=== PATIENT | female | born 1975 | race Asian ===

== ENCOUNTER 2016-04-26 16:19 | Inpatient (IN) | payer BC ==
[~2016-04-26] VITALS: Ht 167 cm; Wt 68.5 kg
[~2016-04-26 16:19] MED LIST: MOTRIN800 MG PO; PERCOCET 5/31 TABLET PO
[2016-04-26 16:41] VITALS: BP 130/90
[2016-04-26 17:10] VITALS: BP 133/85
[2016-04-26] MEDS ORDERED: DIABETA2.5 MG PO (17:28)
[2016-04-26] MEDS ORDERED: PRENATAL TABLE1 EAC3 PO (17:29)
[2016-04-26 18:19] LABS: EOSINOPHIL (%) 0.9 % (0-5); EOSINOPHIL COUNT 0.1 K/uL (0-0.3); HEMATOCRIT 43.4 % (36.0-46.0); IMMATURE GRANULOCYTE (%) 0.4 % (0.0-0.7); LYMPHOCYTE COUNT 2.3 K/uL (1.0-2.8); MCH 30.8 PG (29.0-34.0); MCHC 32.3 G/DL (30.0-36.0); MCV 95.4 FL (83-99); MEAN PLAT.VOLUME 10.4 uM^3 (9.5-12.4); MONOCYTE (%) 7.8 % (3-12); MONOCYTE COUNT 0.8 K/uL (0-0.8); NEUTROPHIL (%) 67.4 % (45-76); NEUTROPHIL COUNT 6.7 K/uL (1.8-6.4); PLATELET COUNT 219 K/uL (156-360); RBC DIS.WIDTH-CV 14.6 % (11.8-14.6); RBC DIS.WIDTH-SD 50.7 % (39-53); RED BLOOD COUNT 4.55 M/uL (3.80-5.20); WHITE BLOOD COUNT 9.9 K/uL (4.1-10.2)
[2016-04-26 18:24] LABS: ANION GAP 11 MEQ/L (2-14); CHLORIDE 104 MEQ/L (99-109); POTASSIUM 3.6 MEQ/L (3.7-5.4); SAMPLE HEMOLYSIS CHECK 0; SAMPLE ICTERIC CHECK 0; SAMPLE LIPEMIA CHECK 0; SODIUM 136 MEQ/L (136-147); TOTAL BILIRUBIN 0.3 MG/DL (0.0-1.0)
[2016-04-26 18:30] LABS: ALKALINE PHOSPHATASE 136 IU/L (3-129); GFR ESTIMATE (CALCULATED) > 59 mL/min/; GLUCOSE 67 mg/dL (70-99); UREA NITROGEN (BUN) 14 mg/dL (9-23)
[2016-04-26 19:48] LABS: POINT-OF-CARE METER ID UU13113801
[2016-04-26 22:00] VITALS: BP 135/73
[2016-04-26 23:32] VITALS: BP 132/75
[2016-04-27] VITALS (26 sets, daily range): BP systolic 105–146; BP diastolic 65–90
[2016-04-27] MEDS ORDERED: MAKENA250 MG/11 IM (06:46)
[2016-04-28 07:18] VITALS: BP 90/62
[2016-04-28 07:56] LABS: EOSINOPHIL (%) 0 % (0-5); HEMATOCRIT 41.3 % (36.0-46.0); IMMATURE GRANULOCYTE (%) 0.3 % (0.0-0.7); LYMPHOCYTE COUNT 2.3 K/uL (1.0-2.8); MCH 30.9 PG (29.0-34.0); MCHC 32.2 G/DL (30.0-36.0); MCV 95.8 FL (83-99); MEAN PLAT.VOLUME 10.6 uM^3 (9.5-12.4); MONOCYTE (%) 7.8 % (3-12); MONOCYTE COUNT 1.2 K/uL (0-0.8); NEUTROPHIL (%) 76.5 % (45-76); NEUTROPHIL COUNT 11.4 K/uL (1.8-6.4); PLATELET COUNT 211 K/uL (156-360); RBC DIS.WIDTH-CV 14.5 % (11.8-14.6); RBC DIS.WIDTH-SD 50.7 % (39-53); RED BLOOD COUNT 4.31 M/uL (3.80-5.20)
[2016-04-28 07:57] LABS: WHITE BLOOD COUNT 14.9 K/uL (4.1-10.2)
[2016-04-28 15:20] VITALS: BP 103/67
[2016-04-28 22:33] VITALS: BP 100/56
[2016-04-29 08:30] VITALS: BP 107/64
[2016-04-29] MEDS ORDERED: MOTRIN800 MG PO (13:46)
== END 2016-04-29 14:35 | disposition home or self-care (01) | DRG 775 ==
LOC: LDRP-OP 16:19 → 2WEST 16:20
PROVIDERS: Midwife; Obstetrics & Gynecology
DX: O70.0 First degree perineal laceration during delivery (principal); O60.10X0 Preterm labor with preterm delivery, unspecified trimester, not applicable or unspecified; O43.813 Placental infarction, third trimester; O24.425 Gestational diabetes mellitus in childbirth, controlled by oral hypoglycemic drugs; Z3A.36 36 weeks gestation of pregnancy; Z37.0 Single live birth
CPT/HCPCS: 80053; 82948; 85025; 85384; C1755; G0378; J0702; J2540; J3010; J7120